=== PATIENT | male | born 1985 | race African-American/Black ===

== ENCOUNTER 2021-03-23 13:12 | Emergency (ER) | payer OTHER ==
[~2021-03-23] VITALS: Ht 193 cm; Wt 149.7 kg
--- NOTE | ~2021-03-23 | EMS ---
[address] [address] EMS Patient Care Report Name: MATTHEW SANCHEZ Room #: PRE JONAH Cox#: [id number] Admission: Attend Phys: Discharge: Date of : 85 Report #: [id number] THIS REPORT FOR: //name// Report Transmitted: 03/23/2021 13:13 EMS Care Summary [place], [place]/[facility] Incident [id number] @ 03/23/2021 12:22 Incident Location [facility] [address] [place], [place] [id number] Patient MATTHEW SANCHEZ Male, 35 Years 1985 Patient Address [address] [place] [id number] Patient History Edema, Patient Allergies No known allergies, Patient Medications None Reported, Chief Complaint LYMPHEDEMA Disposition Transported No Lights/[place] Dispatch Reason Sick Person Transported To [facility] Narrative EMS DISPATCHED TO A LEG PAIN EMS ARRIVED TO FIND PT SITTING IN CHAIR PT STATES THAT HE HAS A 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 PT STATED THAT THEY HAVE BEEN SWELING OVER THE LAST FEW DAYS AND TODAY IT IS [address] [address] EMS Patient Care Report Name: MATTHEW SANCHEZ Room #: PRE ER M.R.#: [id number] Admission: Attend Phys: Discharge: Date of : [birth year] Report #: [id number] PAINFUL PT WALKED 15 FT TO COT PT HAS NON OTHER COMPLAINTS PT STATES THIS HAPPENS A COUPLE OF TIMES A YEAR Initial Vitals @12:55P: 74,R: 16,BP: 126/79,Pain: 2/10,GCS: 15,CO: 3,SpO2: 96,Revised Trauma: 12, @13:03P: 80,R: 16,BP: 127/64,Pain: 2/10,GCS: 15,CO: 5,SpO2: 99,Revised Trauma: 12, Assessments @12:55MENTAL:Person Oriented,Time Oriented,Place Oriented,Event Oriented,SKIN:HEENT:LUNG SOUNDS:ABDOMEN:PELVIS//GI:EXTREMITIES:Right Leg: Edema,Left Leg: Edema,PULSE:NEURO: Impression Edema Procedures @12:54 ALS Assessment Response: UnchangedSucceeded @13:00 Stretcher Response: Unchanged Timeline 12:20,Call Received 12:20,Dispatch Notified 12:22,Dispatched 12:23,En Route 12:42,On Scene 12:45,At Patient 12:52,Depart Scene 12:54,ALS Assessment,Response: UnchangedSucceeded, 12:55,BP: 126/79 M,PULSE: 74,RR: 16 R,SPO2: 96 Ox,ETCO2: ,BG: ,PAIN: 2,GCS: 15, 13:00,Stretcher,Response: Unchanged 13:03,BP: 127/64 M,PULSE: 80,RR: 16 R,SPO2: 99 Ox,ETCO2: ,BG: ,PAIN: 2,GCS: 15, 13:07,At Destination 13:29,Call Closed Disclaimer v1.1 Copyright 2021 [employer] This EMS Care Summary contains data elements from the applicable legal record (which may be displayed differently). It is designed to provide pertinent information for the following purposes: continuity of care, clinical quality, and state data reporting. The complete legal record is available to ED staff and administrators of the receiving hospital in [facility]'s Patient Tracker. All data [facility] [address] [place] [address] EMS Patient Care Report Name: MATTHEW SANCHEZ Room #: PRE MMeryR.#: [id number] Admission: Attend Phys: Discharge: Date of : 85 Report #: [id number] is provided "as is."
[2021-03-23 14:07] LABS: ABSOLUTE NEUTROPHILS 3.6 thou/uL (1.4-8.2); BASOPHILS 0.7 % (0.0-2.0); EOSINOPHILS 2.6 % (0.0-3.0); HEMATOCRIT 37.4 % (42.0-52.0); HEMOGLOBIN 12.1 gm/dL (14.0-18.0); LYMPHOCYTES 29.9 % (24.0-44.0); MCH 28.8 pg (26.0-34.0); MCHC 32.3 g/dL (28.0-37.0); MCV 89.2 fL (80.0-100.0); MONOCYTES 8.8 % (1.0-8.0); PLATELET COUNT 221 thou/uL (150-400); RDW 14.5 % (10.5-14.5); WBC 6.2 thou/uL (4.0-11.0)
[2021-03-23 14:21] LABS: CALCIUM 9.1 mg/dL (8.5-10.1); CREATININE 0.9 mg/dL (0.7-1.3)
[2021-03-23 14:32] LABS: ALBUMIN 3.3 g/dL (3.4-5.0); TOTAL BILIRUBIN 0.8 mg/dL (0.2-1.0); TOTAL PROTEIN 7.1 g/dL (6.4-8.2)
[2021-03-23 14:53] VITALS: BP 143/94
--- NOTE | 2021-03-24 10:56 | EKG ---
[place] [address] [place] [address] ELECTROCARDIOGRAM REPORT Name: MATTHEW SANCHEZ Room #: DEP JONAH Cox#: [id number] Admission: 03/23/21 Attend Phys: Discharge: 03/23/21 Date of : [birth year] Report #: [id number] [facility] ED Test Date: 2021-03-23 Test Time: 13:58:42 Pat Name: MATTHEW SANCHEZ Department: Room: Gender: Huller Operator: kt : 1985 Requested By: Kevin Foster Order Number: [id number] MD: Lv Ferrari Measurements Intervals [place] Rate: 73 P: 37 IA: 167 QRS: -52 QRSD: 109 T: -46 QT: 387 QTc: 427 Interpretive Statements Sinus rhythm Left anterior fascicular block LVH with secondary repolarization abnormality No previous ECG available for comparison Electronically Signed On 03-24-2021 10:55:49 [employer] by Lv Ferrari [email or web address] <ELECTRONICALLY SIGNED> By: Lv Ferrari MD 03/24/21 1055 [id number] Lv Ferrari MD /CASIE
== END 2021-03-23 14:50 | disposition home or self-care (01) ==
LOC: ER 13:12
PROVIDERS: Emergency Medicine
DX: R60.9 Edema, unspecified (principal); Z91.013 Allergy to seafood